=== PATIENT | male | born 1995 | race African-American/Black ===

== ENCOUNTER 2016-12-07 12:57 | Emergency (ER) | payer BC ==
[~2016-12-07] VITALS: Ht 172.7 cm; Wt 62.2 kg
[2016-12-07 13:16] VITALS: TEMP 37; Ht 172.7 cm; Wt 62.2 kg
--- NOTE | 2016-12-07 13:55 | EMERGENCY ROOM VISIT NOTE ---
History Report prepared by Kevin: Demi Solares Under the Supervision of: Dr. Galen Sow M.D. First contact with patient: 13:23 Chief Complaint: ABDOMINAL PAIN Stated Complaint: STOMACH PAIN, SMALL BULGE-SOMETIMES VISIBLE History of Present Illness The patient is a 21 year old male who presents to the Emergency Room with complaints of persistent right lower quadrant pain that began 2 weeks ago. He currently rates his discomfort as a 5/10 in severity. The patient states that he exercises regularly and notes that he developed pain 1 week ago. He reports that the past two days he exercised his abs more than normal and states that this morning he noticed a lump. He denies any pain with bowel movements. The patient reports bloating in the morning. Source of History: patient Onset: 2 weeks ago Position: abdomen (RLQ) Symptom Intensity: 5/10 Timing: other (persistent) Associated Symptoms: + urinary symptoms (pain with urination) Note: Associated Symptoms: lump in his abdomen, abdominal bloating in the morning Review of Systems All systems have been listed, reviewed, and are negative other than those previously mentioned. Please see Additional Medical History Sheet. Past Medical & Surgical Medical Problems: (1) Asthma Family History Diabetes mellitus Social History Smoking Status: Never Smoker Smokeless Tobacco Use: No Alcohol Use: occasionally Marital Status: single Housing Status: lives with roommate Occupation Status: employed Current/Historical Medications No Active Prescriptions or Reported Meds Allergies Coded Allergies: No Known Allergies (Unverified , 12/07/16) Physical Exam Vital Signs Date Time Temp Pulse Resp B/P (MAP) Pulse Ox O2 Delivery O2 Flow Rate FiO2 12/07/16 16:31 58 16 133/83 100 12/07/16 13:16 37.0 70 18 125/59 99 Room Air Physical Exam GENERAL: Patient awake, alert, oriented x 3. Patient follows commands. Patient does not appear toxic. Patient is adequately hydrated and well- nourished. SKIN: No erythema, pallor, cyanosis or rash HEENT: Normal head, pupils equal, reactive to light and accommodation. Neck: Without adenopathy, no neck vein distention. LUNGS: Clear to auscultation. No wheezes, no rales, no rhonchi. HEART: No murmurs. No gallops. No rubs ABDOMEN: Tender in the right lower quadrant, but does not have an inguinal hernia. No masses, no rebound, no hepatomegaly or splenomegaly. : Normal appearing scrotum and penis, no inguinal hernia. EXTREMITIES: No signs of trauma or infection NEUROLOGIC: Cranial nerves II-XII within normal limits. No gross motor sensory function deficits. Medical Decision & Procedures ER Provider Diagnostic Interpretation: US results are interpretations by the radiologist and per my review. ABDOMEN FOR HERNIA CLINICAL HISTORY: Right lower quadrant pain. Suspect muscle strain/hernia. COMPARISON STUDY: No previous studies for comparison. FINDINGS: No right lower quadrant hernia, hematoma or mass was identified. Comparison sonography of the left lower quadrant was performed. IMPRESSION: No right abdominal hernia, hematoma or mass identified. Electronically signed by: Ayden Bui M.D. 12/07/2016 3:11 PM Dictated Date/Time: 12/07/2016 3:10 PM ED Course 1324: Past medical records reviewed. The patient was evaluated in room B5. A complete history and physical examination was performed. 1527: I reevaluated the patient and he is resting comfortably. I discussed the exam findings with him and I discussed the treatment plan. He verbalized complete understanding and agreement. He is ready to go home. Medical Decision Nurses notes reviewed. Medical history sheet reviewed. Differential diagnosis includes but is not limited to: abdominal strain, inguinal hernia, incarcerated hernia. The patient is here with tenderness along his right lower mid abdomen. This is most consistent with muscular strain. The patient requested an ultrasound for confirmation. Ultrasound does not reveal any hernia or mass. The patient will be encouraged to use ibuprofen. He is to avoid any heavy lifting for the next 2 -4 weeks. Medication Reconciliation: I attest that I have personally reviewed the patient' s current medication list. Blood pressure Screening: Patient was found to have normal blood pressure on screening and does not require follow up. Impression Primary Impression: Strain of abdominal wall Scribe Attestation The scribe's documentation has been prepared under my direction and personally reviewed by me in its entirety. I confirm that the note above accurately reflects all work, treatment, procedures, and medical decision making performed by me. Departure Information Prescriptions No Active Prescriptions or Reported Meds Referrals No Doctor, Assigned (PCP) Patient Instructions [facility] Additional Instructions Avoid any heavy lifting for the next 2-4 weeks. 600 mg ibuprofen every 6 hours as needed for pain. Apply heat intermittently to your abdomen the next 2 days.
--- NOTE | 2016-12-07 15:12 | DIAGNOSTIC IMAGING REPORT ---
ABDOMEN FOR HERNIA CLINICAL HISTORY: Right lower quadrant pain. Suspect muscle strain/hernia. COMPARISON STUDY: No previous studies for comparison. FINDINGS: No right lower quadrant hernia, hematoma or mass was identified. Comparison sonography of the left lower quadrant was performed. IMPRESSION: No right abdominal hernia, hematoma or mass identified. Electronically signed by: Ayden Bui M.D. 12/07/2016 3:11 PM Dictated Date/Time: 12/07/2016 3:10 PM
[2016-12-07 16:31] VITALS: BP 133/83; PULSE 58; O2SAT 100
== END 2016-12-07 16:00 | disposition home or self-care (01) ==
LOC: C.EDB 12:59
DX: S39.011A Strain of muscle, fascia and tendon of abdomen, initial encounter (principal); X58.XXXA Exposure to other specified factors, initial encounter; J45.909 Unspecified asthma, uncomplicated